=== PATIENT | male | born 1985 | race Two or more races ===

== ENCOUNTER → 2024-04-08 09:53 | Outpatient (REF) | payer BC, SELFPAY ==
[2024-04-10 11:33] LABS: Quantiferon Plus TB2 minus NIL 0.14 IU/mL (<=0.34); Quantiferon TB Gold Plus Negative (Negative)
== END ==
LOC: REG 09:53
PROVIDERS: ATTENDING PHYSICIAN Nurse Practitioner; FAMILY PHYSICIAN Family Medicine
DX: Z23 Encounter for immunization (principal)
CPT/HCPCS: 36415; 86480

== ENCOUNTER → 2024-12-14 07:46 | Outpatient (REF) | payer BC, SELFPAY ==
[2024-12-14 10:29] LABS: ALT (SGPT) 39 U/L (0-50); AST (SGOT) 35 U/L (17-59); Albumin 4.8 g/dl (3.5-5.0); Alkaline Phosphatase 39 U/L (38-126); Blood Urea Nitrogen 15 mg/dl (9-20); Calcium 10.4 mg/dl (8.4-10.2); Carbon Dioxide 26 mmol/L (22-30); Chloride 108 mmol/L (98-107); Glucose 111 mg/dl (70-99); HDL Cholesterol 26 mg/dl; Hematocrit 43.7 % (39.0-52.0); Hemoglobin 14.9 g/dL (13.0-18.0); LDL Cholesterol, Calculated 130 mg/dl; Mean Corp Hgb Conc. 34.1 g/dL (33.0-37.0); Mean Corpuscular Hgb 28.9 pg (27.0-31.0); Mean Corpuscular Volume 84.9 fL (80.0-94.0); Mean Platelet Volume 10.2 fL (7.4-10.4); Platelet Count 186 10^3/uL (130-400); Potassium 4.3 mmol/L (3.5-5.1); Red Blood Cell Count 5.15 10^6/uL (4.70-6.10); Red Cell Dist. Width 12.8 % (11.5-14.5); Sodium 143 mmol/L (135-145); Total Bilirubin 0.7 mg/dl (0.2-1.3); Total Cholesterol 181 mg/dl (50-199); Total Protein 7.5 g/dl (6.3-8.2); Triglyceride 129 mg/dl (10-149); Very Low Density Lipoprotein 25 mg/dl (0-30); White Blood Cell Count 3.6 10^3/uL (4.8-10.8); eGFR > 60.00
[2024-12-14 11:03] LABS: TSH Reflex To Free T4 1.93 uIU/ml (0.47-4.68)
[2024-12-14 11:20] LABS: Glycohemoglobin (HgbA1c) 5.7 % (4.0-5.6)
[2024-12-14 12:15] LABS: % Basophils 0.6 % (0-2); % Eosinophils 0.6 % (0-6); % Lymphocytes 63.7 % (20.5-51.1); % Monocytes 7.5 % (1.7-9.3); % Neutrophils 27.6 % (42.2-75.2); Absolute Lymphocytes 2.3 10^3/uL (1.2-3.4); Absolute Monocytes 0.3 10^3/uL (0.1-0.6); Nucleated Red Blood Cells % 0 % (-)
== END ==
LOC: HWLAB 07:46
PROVIDERS: ATTENDING PHYSICIAN Family Medicine
DX: D70.9 Neutropenia, unspecified (principal); E66.9 Obesity, unspecified
CPT/HCPCS: 36415; 80053; 80061; 83036; 84443; 85025